=== PATIENT | male | born 1975 | race Caucasian/White ===

== ENCOUNTER 2019-07-28 17:45 | Emergency (ER) | payer MEDICARE ==
[~2019-07-28] VITALS: Ht 182.9 cm; Wt 82.7 kg
[2019-07-28] MEDS ORDERED: PREDNISONE20 MG PO (18:11)
[2019-07-28] MEDS ORDERED: EPIPEN 2-PAK1 MG/ML IM (18:11)
[2019-07-28 18:18] LABS: BASO % 0.1 % (0.0-2.0); EOS # 0.1 (0.0-0.7); EOS % 1.5 % (0-4.0); GRAN # 4.2 (1.4-6.5); GRAN % 61.8 % (42.2-75.2); HEMATOCRIT 41.2 % (42.0-52.0); HEMOGLOBIN 13.5 g/dl (13.5-18.0); LYMPH # 2.1 (1.2-3.4); LYMPH % 30.7 % (20.0-51.0); MEAN CELL VOLUME 91 fl (80.0-100.0); MEAN CORPUSCULAR HEMOGLOBIN 30 pg (27.0-31.0); MEAN CORPUSCULAR HGB CONC 33 g/dl (33.0-37.0); MEAN PLATELET VOLUME 10.2 fl (7.4-10.4); MONO # 0.4 (0.1-0.6); MONO % 5.6 % (1.7-9.3); PLATELET COUNT 267 K/mm3 (130-400); RED BLOOD COUNT 4.55 M/mm3 (4.20-5.60); REDCELL DISTRIBUTION WIDTH-CV 13.4 % (11.5-14.5)
[2019-07-28] MEDS ORDERED: NEURONTIN600 MG/TAB PO (18:23)
[2019-07-28] MEDS ORDERED: LYRICA300 MG PO (18:24)
[2019-07-28 18:25] LABS: ALBUMIN 4.2 gm/dL (3.5-5.0); BILIRUBIN,TOTAL 0.2 mg/dL (0.0-1.0); CALCIUM 9.1 mg/dL (8.4-10.2); CREATININE, serum 0.79 (0.66-1.25); POTASSIUM 3.7 mmol/L (3.4-5.0); TOTAL PROTEIN 7.4 gm/dL (6.4-8.2)
[2019-07-28 19:45] VITALS: BP 123/88; PULSE 100; TEMP 98.1
== END 2019-07-28 19:47 | disposition home or self-care (01) ==
LOC: COL.ER 17:45
PROVIDERS: Emergency Medicine
DX: T78.1XXA Other adverse food reactions, not elsewhere classified, initial encounter (principal); E11.9 Type 2 diabetes mellitus without complications
CPT/HCPCS: J0171; J1200; J2405; J7030; J7512

== ENCOUNTER 2020-12-22 13:15 | Emergency (ER) | payer MEDICARE ==
[~2020-12-22] VITALS: Ht 182.9 cm; Wt 77.3 kg
[~2020-12-22 13:15] MED LIST: EPIPEN 2-PAK1 MG/ML IM; LYRICA300 MG PO; NEURONTIN600 MG/TAB PO; PREDNISONE20 MG PO
[2020-12-22 13:28] VITALS: TEMP 97.8
[2020-12-22] MEDS ORDERED: ADDERALL30 MG PO (14:14)
[2020-12-22 14:17] LABS: TRICYCLIC ANTIDEPRESS URINE NEGATIVE
[2020-12-22 14:18] LABS: BASO % 0.2 % (0.0-2.0); EOS # 0.2 (0.0-0.7); EOS % 2.8 % (0-4.0); GRAN # 4.4 (1.4-6.5); GRAN % 75.6 % (42.2-75.2); HEMATOCRIT 37.6 % (42.0-52.0); HEMOGLOBIN 12.5 g/dl (13.5-18.0); LYMPH # 0.9 (1.2-3.4); LYMPH % 15.7 % (20.0-51.0); MEAN CELL VOLUME 87 fl (80.0-100.0); MEAN CORPUSCULAR HEMOGLOBIN 29 pg (27.0-31.0); MEAN CORPUSCULAR HGB CONC 33 g/dl (33.0-37.0); MEAN PLATELET VOLUME 9.2 fl (7.4-10.4); MONO # 0.3 (0.1-0.6); MONO % 5.4 % (1.7-9.3); PLATELET COUNT 329 K/mm3 (130-400); RED BLOOD COUNT 4.31 M/mm3 (4.20-5.60)
[2020-12-22 14:28] LABS: ALANINE AMINOTRANSFERASE 15 U/L (4-49); ALBUMIN 3.7 gm/dL (3.5-5.0); ALKALINE PHOSPHATASE 78 U/L (50-136); ANION GAP 2 mmol/L (7-16); AST,SGOT 22 U/L (15-37); BILIRUBIN,TOTAL 0.3 mg/dL (0.0-1.0); BLOOD UREA NITROGEN 11 mg/dL (9-20); CALCIUM 8.4 mg/dL (8.4-10.2); CARBON DIOXIDE 32 mmol/L (22-30); CHLORIDE 104 mmol/L (98-107); CREATININE, serum 0.68 (0.66-1.25); GLUCOSE 143 mg/dL (74-106); POTASSIUM 3.9 mmol/L (3.4-5.0); SODIUM 139 mmol/L (137-145); TOTAL PROTEIN 6.9 gm/dL (6.4-8.2)
[2020-12-22 14:44] LABS: ACETAMINOPHEN < 10 ug/mL (10-30); ALCOHOL(ethanol),MEDICAL < 10 mg/dL; SALICYLATE < 1.0 mg/dL
[2020-12-22 14:58] LABS: TSH w REFLEX 0.771 uIU/mL (0.465-4.680)
[2020-12-22 17:26] VITALS: BP 141/80; PULSE 81
== END 2020-12-22 17:27 | disposition home or self-care (01) ==
LOC: COL.ER 13:15
PROVIDERS: Emergency Medicine
DX: F15.10 Other stimulant abuse, uncomplicated (principal); E11.9 Type 2 diabetes mellitus without complications

== ENCOUNTER 2021-03-28 17:13 | Emergency (ER) | payer MEDICARE ==
[~2021-03-28] VITALS: Ht 185.4 cm; Wt 79.5 kg
[~2021-03-28 17:13] MED LIST changes: +ADDERALL30 MG PO
[2021-03-28 17:45] VITALS: TEMP 98
[2021-03-28 18:26] LABS: BASO % 0.4 % (0.0-2.0); EOS # 0.1 (0.0-0.7); EOS % 2.3 % (0-4.0); GRAN # 3.6 (1.4-6.5); GRAN % 68.3 % (42.2-75.2); HEMOGLOBIN 11.6 g/dl (13.5-18.0); LYMPH # 1.2 (1.2-3.4); MEAN CELL VOLUME 85 fl (80.0-100.0); MEAN CORPUSCULAR HEMOGLOBIN 29 pg (27.0-31.0); MEAN CORPUSCULAR HGB CONC 34 g/dl (33.0-37.0); MEAN PLATELET VOLUME 9.3 fl (7.4-10.4); MONO # 0.4 (0.1-0.6); MONO % 6.8 % (1.7-9.3); PLATELET COUNT 344 K/mm3 (130-400); RED BLOOD COUNT 4.05 M/mm3 (4.20-5.60); REDCELL DISTRIBUTION WIDTH-CV 13.3 % (11.5-14.5)
[2021-03-28 18:28] LABS: HEMATOCRIT 34.5 % (42.0-52.0)
[2021-03-28 18:37] LABS: ALANINE AMINOTRANSFERASE 17 U/L (4-49); ALBUMIN 4.2 gm/dL (3.5-5.0); ALKALINE PHOSPHATASE 91 U/L (50-136); ANION GAP 5 mmol/L (7-16); AST,SGOT 31 U/L (15-37); BILIRUBIN,TOTAL 0.6 mg/dL (0.0-1.0); BLOOD UREA NITROGEN 11 mg/dL (9-20); CARBON DIOXIDE 30 mmol/L (22-30); CHLORIDE 105 mmol/L (98-107); CREATININE, serum 0.71 (0.66-1.25); GLUCOSE 84 mg/dL (74-106); POTASSIUM 3.1 mmol/L (3.4-5.0); SODIUM 140 mmol/L (137-145); TOTAL PROTEIN 7.7 gm/dL (6.4-8.2)
[2021-03-28 18:46] LABS: ACETAMINOPHEN < 10 ug/mL (10-30); ALCOHOL(ethanol),MEDICAL < 10 mg/dL; SALICYLATE < 1.0 mg/dL
[2021-03-28 18:50] LABS: COLLECTION METHOD CLEAN CATCH
[2021-03-28 19:00] LABS: MUCOUS Present /lpf; PH 5 (5-8); SQUAMOUS EPITHELIAL None Seen /hpf; URINE APPEARANCE Turbid; URINE BACTERIA None Seen /hpf; URINE BILIRUBIN Negative (NEGATIVE); URINE BLOOD Negative (NEGATIVE); URINE CALCIUM OXALATE CRYSTAL Present /hpf; URINE COLOR Amber; URINE GLUCOSE Negative (NEGATIVE); URINE KETONE Negative (NEGATIVE); URINE LEUKOCYTE ESTERASE Negative (NEGATIVE); URINE NITRATE Negative (NEGATIVE); URINE PROTEIN(semi-quant) 2+ (NEGATIVE); URINE RBC 0-2 /hpf
[2021-03-28 19:05] LABS: TRICYCLIC ANTIDEPRESS URINE NEGATIVE
[2021-03-28 19:49] LABS: TSH w REFLEX 1.328 uIU/mL (0.350-4.940)
[2021-03-28] MEDS ORDERED: BACTRIM DS 8001 TAB PO (20:00)
[2021-03-28 20:37] VITALS: BP 154/70; PULSE 64
== END 2021-03-28 20:37 | disposition home or self-care (01) ==
LOC: COL.ER 17:13
PROVIDERS: Physician Assistant
DX: L03.113 Cellulitis of right upper limb (principal); E87.6 Hypokalemia; F15.10 Other stimulant abuse, uncomplicated; F90.9 Attention-deficit hyperactivity disorder, unspecified type; F17.210 Nicotine dependence, cigarettes, uncomplicated; Z79.899 Other long term (current) drug therapy

== ENCOUNTER 2021-09-26 14:59 | Emergency (ER) | payer MEDICARE ==
[~2021-09-26] VITALS: Ht 182.9 cm; Wt 81.8 kg
[~2021-09-26 14:59] MED LIST changes: +BACTRIM DS 8001 TAB PO
[2021-09-26 15:05] VITALS: TEMP 98.1
[2021-09-26] MEDS ORDERED: PRILOSEC 20MG20 MG PO (15:09)
[2021-09-26 15:18] LABS: BASO % 0.2 % (0.0-2.0); EOS # 0.2 K/mm3 (0.0-0.7); EOS % 2.4 % (0.0-4.0); GRAN # 5.5 K/mm3 (1.4-6.5); GRAN % 68.4 % (42.2-75.2); HEMOGLOBIN 10.9 g/dl (13.5-18.0); LYMPH # 1.3 K/mm3 (1.2-3.4); LYMPH % 16.3 % (20.0-51.0); MEAN CELL VOLUME 85 fl (80.0-100.0); MEAN CORPUSCULAR HEMOGLOBIN 29 pg (27-31); MEAN CORPUSCULAR HGB CONC 34 g/dl (33.0-37.0); MEAN PLATELET VOLUME 8.8 fl (7.4-10.4); MONO % 12.3 % (1.7-9.3); PLATELET COUNT 433 K/mm3 (130-400); RED BLOOD COUNT 3.74 M/mm3 (4.20-5.60); REDCELL DISTRIBUTION WIDTH-CV 13.7 % (11.5-14.5)
[2021-09-26 15:19] LABS: HEMATOCRIT 31.8 % (42.0-52.0)
[2021-09-26 15:34] LABS: ALBUMIN 2.8 gm/dL (3.5-5.0); BILIRUBIN,TOTAL 0.5 mg/dL (0.2-1.2); CALCIUM 9.2 mg/dL (8.4-10.2); CREATININE, serum 0.73 mg/dL (0.72-1.25); TOTAL PROTEIN 6.9 gm/dL (6.2-8.1)
[2021-09-26] MEDS ORDERED: BACTRIM DS 8001 TAB PO (15:52)
[2021-09-26] MEDS ORDERED: NORCO 325 MG-51 TAB PO (15:52)
[2021-09-26 16:00] VITALS: BP 110/69; PULSE 88
== END 2021-09-26 16:00 | disposition home or self-care (01) ==
LOC: COL.ER 14:59
PROVIDERS: Emergency Medicine
DX: M79.89 Other specified soft tissue disorders (principal); R60.0 Localized edema; M79.605 Pain in left leg; F17.210 Nicotine dependence, cigarettes, uncomplicated
CPT/HCPCS: J1650